=== PATIENT | female | born 1960 | race Two or more races ===

== ENCOUNTER → 2016-12-03 | Outpatient (CLI) | payer BC ==
[2016-12-03 16:12] LABS: EKG EKG PERFORMED
[2016-12-03 16:26] LABS: Basophils # (A) 0.1 k/uL (0-0.2); Basophils % (A) 1 %; CH 30.4; CHCM 33.8; Eosinophils # (A) 0.1 k/uL (0-0.7); Eosinophils % (A) 1 %; HCT 44.4 % (34.0-46.0); HGB 14.6 gm/dL (11.4-16.0); Luc % (Auto) 2; Lymphocytes # (A) 1.6 k/uL (1.0-4.8); Lymphocytes % (A) 26 %; MCH 29.8 pg (25.0-35.0); MCV 90.4 fL (80.0-100.0); Monocytes # (A) 0.3 k/uL (0-1.0); Monocytes % (A) 6 %; Neutrophils # (A) 3.9 k/uL (1.3-7.7); Neutrophils % (A) 64 %; RBC 4.91 m/uL (3.80-5.40); RDW 13.4 % (11.5-15.5); WBC 6.1 k/uL (3.8-10.6); WBC (Perox) 5.73
[2016-12-03 16:34] LABS: Anion Gap 10 mmol/L; Carbon Dioxide 29 mmol/L (22-30); Chloride 106 mmol/L (98-107); Potassium 4.2 mmol/L (3.5-5.1); Sodium 145 mmol/L (137-145)
== END | disposition home or self-care (01) ==
LOC: LABMOB 16:04
PROVIDERS: ATTEND Orthopaedic Surgery
DX: Z01.810 Encounter for preprocedural cardiovascular examination (principal); Z01.812 Encounter for preprocedural laboratory examination; M75.42 Impingement syndrome of left shoulder
CPT/HCPCS: 36415; 80051; 85025; 93005

== ENCOUNTER 2016-12-30 06:02 | Day surgery (SDC) | payer BC ==
[2016-12-28 09:15] VITALS: BMI 31.5
--- NOTE | 2016-12-29 20:47 | HP ---
DATE OF SURGERY: 12/30/2016 Sarahi Sandoval is a 56-year-old patient seen with progressive left shoulder pain. After treatment options were discussed, she elected to proceed with left shoulder arthroscopy. Consent was obtained. Her past medical history is non-contributory. Past surgical history is non-contributory. DAILY MEDICATIONS: None. ALLERGIES: NONE REPORTED. SOCIAL HISTORY: Patient denies current tobacco use. PHYSICAL EVALUATION OF LEFT SHOULDER: Flexion 120 degrees. Abduction 100 degrees. External rotation is 20 degrees with weakness. Tenderness along the anterolateral acromion and rotator cuff insertion. Impingement positive at 90 degrees. Her distal neurovascular exam is intact. Left shoulder radiographs revealed acromioclavicular joint osteoarthritis. Left shoulder MRI revealed a partial rotator cuff and labral tear. IMPRESSION: Left shoulder impingement with rotator cuff tear and acromioclavicular joint osteoarthritis. PLAN: Left shoulder arthroscopy with subacromial decompression and possible arthroscopic rotator cuff repair, possible Cora procedure and debridement. OLIVA
[~2016-12-30 06:02] MED LIST: DEXAMETHASONE SOD PHOSPHATE 10 MG/ML 1 ML VIAL IV ONE; HYDROmorphone 1 MG/ML 1 ML SYRINGE IVP PRN; LACTATED RINGERS 1,000 ML IV SCH; MIDAZOLAM 2 MG/2 ML VIAL IV PRN; ONDANSETRON 4 MG/2 ML VIAL IVP ONE; SCOPOLAMINE 1.5MG/72HR PATCH TRANSDERM ONE; ceFAZolin 2 GM in SODIUM CHLORIDE 0.9% 100 ML IVPB ONE
[2016-12-30] MEDS ORDERED: LIDOCAINE 1% 20 ML VIAL (10MG/ML) FOR IV START INTRADERMA ONE (06:30)
[2016-12-30] MEDS ORDERED: fentaNYL (PF) 50 MCG/ML 2 ML AMP IV ONE (06:54)
[2016-12-30] MEDS ORDERED: NEOSTIGMINE 1 MG/ML 10 ML VIAL ONE (07:26)
[2016-12-30] MEDS ORDERED: LIDOCAINE 1% INJ 10MG/ML (20 ML MDV) ONE (07:26)
[2016-12-30] MEDS ORDERED: ROCURONIUM BROMIDE 10 MG/ML 10 ML VIAL IV ONE (07:26)
[2016-12-30] MEDS ORDERED: PROPOFOL 10 MG/ML 20 ML VIAL IV ONE (07:26)
[2016-12-30] MEDS ORDERED: SUCCINYLCHOLINE CHLORIDE 100 MG/5 ML SYR IV ONE (07:26)
[2016-12-30] MEDS ORDERED: fentaNYL (PF) 50 MCG/ML 2 ML AMP ONE (07:26)
[2016-12-30] MEDS ORDERED: GLYCOPYRROLATE 0.2 MG/ML 2 ML VIAL ONE (07:26)
--- NOTE | 2016-12-30 07:57 | P.ONQ ---
Anesthesiology Proc Note - PNB - Peripheral Nerve Block Performed Left Interscalene Single Procedure Start Time: 06:55 Procedure Stop Time: 07:05 Indication: Acute Post-Operative Pain, Requested by physician Specifically requested for management of pain by DrYeyo: Reinier Johnson Sedation Type: Sedate with meaningful contact maintained Preparation: Sterile Prep Position: Supine Needle Types: Facet Needle Size: 50mm (2") Needle Gauge: 21 Technique: Ultrasound Injectate: 0.5% Ropivacaine (see comment for volume) (25 ml)
--- NOTE | 2016-12-30 09:03 | P.OP ---
Date of Procedure: 12/30/16 Preoperative Diagnosis: Left shoulder impingement Postoperative Diagnosis: 1. Left shoulder rotator cuff tear 2. Left shoulder impingement 3. Left shoulder partial biceps tendon tear 4. Left shoulder superficial labral tear Procedure(s) Performed: 1. Left shoulder arthroscopic rotator cuff repair 2. Left shoulder arthroscopic subacromial decompression 3. Left shoulder arthroscopic biceps tenotomy 4. Left shoulder arthroscopic debridement labral tear Implants: 1-valeris peek anchors Anesthesia: GETA, regional (Shoulder block) Surgeon: Reinier Johnson Field Marketing Associate #1: Sridhar Zapata Estimated Blood Loss (ml): 10 Pathology: none sent Condition: stable Disposition: PACU Indications for Procedure: 56-year-old patient seen with progressive left shoulder pain. After having treatment options discussed, she elected to proceed with arthroscopy. Operative Findings: see description of procedure Description of Procedure: Patient underwent a shoulder block by department of anesthesia. The patient was then taken to the operative suite. The patient underwent a general anesthetic by the department of anesthesia. The patient was placed into a lateral position and secured. There was appropriate padding of the bony prominence. Left shoulder was then prepped and draped in normal sterile orthopedic fashion. We placed the extremity in 10 pounds of longitudinal traction. A posterior incision was now made for a posterior working portal site. The trocar and cannula were inserted into the glenohumeral joint. Arthroscopy was initiated. Spinal needle was now inserted anteriorly, to ascertain the anterior working portal site. An incision was now made in that area, a trocar was inserted followed by a probe. There was superficial tearing of the anterior and superior labrum. There was hyperemia and partial tearing long head biceps tendon at the insertion. There were mild grade 1 chondromalacia changes of the glenohumeral joint, no osteochondral tears were present. The posterior and inferior labrum were intact. I performed an arthroscopic biceps tenotomy. I debrided the labral tear down to stable tissue. At this point instruments removed from glenohumeral joint. Utilizing the posterior working portal site, the trocar and cannula were inserted into the subacromial space. Arthroscopy initiated. I made an incision 2 fingerbreadths lateral to the acromion. I introduced my trocar followed by my ArthroCare ablator. I now began ablating thick subacromial bursal tissue, which exposed the undersurface of the anterior acromion. This was diminished subacromial space. There was a very prominent anterior acromion. A motorized bur was introduced and a subacromial decompression was performed. I also excised some osteophytes off the inferior aspect of the distal clavicle. The AC joint was visualized and noted to be moderately arthritic. I did not think enough toward a Cora procedure. I turned my attention to the rotator cuff. There was a 1.5 cm tear along the anterior supraspinatus. I debrided the margins down to stable tissue. I abraded the footprint with a motorized bur. I introduced 2 everted mattress sutures with good bites of rotator cuff tendon. I then repaired that back down to the footprint with one single 5.5 peek anchor. Residual suture limbs were clipped. The repair was probed and found to be stable. I injected 1 mL Allogen intra-articular. Instruments now removed from the portal sites. All portal sites were approximated with nylon suture. Sterile dressings were applied followed by a shoulder immobilizer. Stuart NATARAJAN assisted with the procedure. The patient was awakened, transferred to a bed, and taken to recovery in stable condition.
[2016-12-30 09:12] VITALS: TEMP 96.8
[2016-12-30 10:07] VITALS: RESP 18
[2016-12-30 10:33] VITALS: BP 125/60; PULSE 87
== END 2016-12-30 11:36 | disposition home or self-care (01) ==
LOC: OR 06:02
PROVIDERS: ATTEND Orthopaedic Surgery
DX: M75.102 Unspecified rotator cuff tear or rupture of left shoulder, not specified as traumatic (principal); M75.42 Impingement syndrome of left shoulder; M19.012 Primary osteoarthritis, left shoulder; S46.112A Strain of muscle, fascia and tendon of long head of biceps, left arm, initial encounter; X58.XXXA Exposure to other specified factors, initial encounter; S43.402A Unspecified sprain of left shoulder joint, initial encounter
CPT/HCPCS: 29826; 29827; 20610; C1713; C1765; J2250; J1100; J2710; J0690; J2405; J2001; J3010; J0330; J2704

== ENCOUNTER 2017-04-12 08:46 | Day surgery (SDC) | payer BC ==
[2017-04-07 09:20] VITALS: BMI 31.2
--- NOTE | 2017-04-11 14:08 | HP ---
HISTORY AND PHYSICAL Surgery scheduled for 04/12/2017. Sarahi Sandoval is a 56-year-old patient seen with left shoulder adhesive capsulitis after previously having undergone arthroscopic rotator cuff repair. Options were discussed. She would like to proceed with manipulation under anesthesia and left shoulder steroid injection. Consent was obtained. PAST MEDICAL HISTORY: Noncontributory. PAST SURGICAL HISTORY: Left shoulder arthroscopy. DAILY MEDICATIONS: Ibuprofen. ALLERGIES: None reported. SOCIAL HISTORY: Patient denies tobacco use. PHYSICAL EVALUATION LEFT SHOULDER: Previous arthroscopic portal sites are well healed. Flexion 100 degrees, abduction 100 degrees, external rotation 0 degrees with weakness. Distal neurovascular exam is intact. RADIOGRAPHS: Left shoulder revealed a stable conversion to a flat anterior acromion. IMPRESSION: Left shoulder adhesive capsulitis. PLAN: Manipulation under anesthesia, left shoulder with steroid injection. MMODL / IJN: [id number] /
[~2017-04-12 08:46] MED LIST changes: -HYDROmorphone 1 MG/ML 1 ML SYRINGE IVP PRN; +LIDOCAINE 1% 20 ML VIAL (10MG/ML) FOR IV START INTRADERMA PRN
[2017-04-12 09:07] VITALS: TEMP 98.3
[2017-04-12] MEDS ORDERED: PROPOFOL 10 MG/ML 20 ML VIAL IV ONE (09:30)
[2017-04-12] MEDS ORDERED: KETOROLAC 30 MG/ML 1 ML VIAL ONE (09:30)
[2017-04-12] MEDS ORDERED: HYDROmorphone (PF) 1 MG/ML ONE (09:30)
[2017-04-12] MEDS ORDERED: BUPIVACAINE (PF) 0.25% 30 ML VIAL MISCELLANE ONE (09:40)
[2017-04-12] MEDS ORDERED: methylPREDNISolone ACETATE 80 MG/ML 1 ML VIAL INJ ONE (09:40)
--- NOTE | 2017-04-12 09:50 | P.OP ---
Date of Procedure: 04/12/17 Preoperative Diagnosis: Left shoulder adhesive capsulitis Postoperative Diagnosis: Left shoulder adhesive capsulitis Procedure(s) Performed: Manipulation under anesthesia left shoulder with steroid injection Implants: None Anesthesia: MAC Surgeon: Reinier Johnson Estimated Blood Loss (ml): 1 Pathology: none sent Condition: stable Disposition: PACU Indications for Procedure: 48-year-old patient seen with left shoulder adhesive capsulitis. I discussed options for treatment, she elected proceed with manipulation under anesthesia left shoulder with steroid injection. Operative Findings: See description of procedure Description of Procedure: Patient was taken to a monitored anesthesia area. Patient received preoperative IV antibiotics. Patient underwent IV sedation by the department anesthesia. Once sufficient analgesia/anesthesia was noted I performed a manipulation of the left shoulder with obvious tearing of the adhesions. I was able to achieve 170 of flexion, 170 of abduction and 70 of external rotation. The anterior aspect left shoulder was now prepped and draped in the normal sterile orthopedic fashion. I injected 1 mL Depo-Medrol and 2 mL quarter percent plain Marcaine intra-articular left shoulder. The patient tolerated the procedure well. A sterile Band-Aid was applied. The patient was awakened in stable condition.
[2017-04-12] MEDS: HYDROmorphone 0.5 MG/0.5 ML SYRINGE IVP PRN ×2 (09:55→10:07)
[2017-04-12 10:07] VITALS: RESP 16
[2017-04-12] MEDS ORDERED: ONDANSETRON 4 MG/2 ML VIAL IVP ONE (11:18)
[2017-04-12 11:58] VITALS: BP 112/53; PULSE 62
== END 2017-04-12 12:17 | disposition home or self-care (01) ==
LOC: OR 08:46
PROVIDERS: ATTEND Orthopaedic Surgery
DX: M75.02 Adhesive capsulitis of left shoulder (principal); Z79.1 Long term (current) use of non-steroidal anti-inflammatories (NSAID)
CPT/HCPCS: 23700; J1040; J1100; J2405; J1885; J1170 ×2; J2704